=== PATIENT | female | born 2000 | race Two or more races ===

== ENCOUNTER 2022-03-16 04:56 | Emergency (ER) | payer MEDICAID ==
[~2022-03-16] VITALS: Ht 162.6 cm; Wt 65.8 kg
[2022-03-16 06:17] VITALS: BP 119/86
[2022-03-16] MEDS ORDERED: IBUP600T27 PO (07:21)
[2022-03-16] MEDS ORDERED: IBUPROFEN 600 MG TAB PO ONE (07:30)
== END 2022-03-16 07:32 | disposition home or self-care (01) ==
LOC: ER 04:56
DX: S93.602A Unspecified sprain of left foot, initial encounter (principal); Z79.1 Long term (current) use of non-steroidal anti-inflammatories (NSAID); X50.1XXA Overexertion from prolonged static or awkward postures, initial encounter; Y93.89 Activity, other specified; Y92.89 Other specified places as the place of occurrence of the external cause; Y99.8 Other external cause status
CPT/HCPCS: 73610; 73630